=== PATIENT | female | born 1960 | race Caucasian/White ===

== ENCOUNTER 2022-01-09 08:17 | Outpatient (REF) | payer OTHER, SELFPAY ==
--- NOTE | ~2022-01-09 | MM_ITS ---
EXAMINATION: MM SCREENING DIGITAL BREAST TOMOSYNTHESIS, BILATERAL CLINICAL INFORMATION: Screening. Asymptomatic. The lifetime risk of breast cancer based on the Tyrer-Cuzick Model is 9%. COMPARISON: Mammography: 03/27/2019, 02/05/2018, 01/27/2017, 12/15/2015 TECHNIQUE: Digital breast tomosynthesis is performed in both the craniocaudal and mediolateral oblique views along with computer-aided detection (CAD). Synthesized 2D images are generated from the tomosynthesis. FINDINGS: There are scattered areas of fibroglandular density (ACR BI-RADS breast composition Category b). Left breast parenchymal pattern is similar to prior study. No developing density or interval architectural abnormality. Neither breast shows abnormal calcifications. The axilla and skin contours are unremarkable. Right breast has circumscribed oval nodule approximately 0.5 cm anterior 9:00 position, increased in size from prior study, possibly cyst or intramammary node. Patient will be recalled for targeted ultrasound. MM/MM tomosynthesis screening BI IMPRESSION: Right: -Circumscribed oval nodule approximately 0.5 cm anterior 9:00 position increased in size from prior exams, possibly a cyst or intramammary node. Left: -No mammographic evidence of malignancy. ASSESSMENT: BI-RADS 0: Incomplete - Need Additional Imaging Evaluation RECOMMENDATION: 1. Targeted ultrasound right breast. 2. Radiology department staff will contact the patient for additional imaging. This patient's information was entered into a reminder system with a target due date for their next mammogram.
== END 2022-01-09 08:18 | disposition home or self-care (01) ==
LOC: HO.MAMMO 08:17
PROVIDERS: PCP Internal Medicine; Visit Provider Internal Medicine
DX: Z12.31 Encounter for screening mammogram for malignant neoplasm of breast (principal)
CPT/HCPCS: 77063; 77067

== ENCOUNTER 2022-01-11 08:56 | Outpatient (REF) | payer OTHER, SELFPAY ==
--- NOTE | ~2022-01-11 | US_ITS ---
EXAMINATION: US DIAGNOSTIC ULTRASOUND BREAST, RIGHT CLINICAL INFORMATION: Recall from screening for small oval circumscribed nodule anterior 9:00 position increased in size from prior studies, possibly a cyst. COMPARISON: Mammography 01/09/2022, 03/27/2019, 02/05/2018. TECHNIQUE: Ultrasound right breast is targeted to the anterior outer aspect using grayscale imaging and color Doppler without and with harmonics. FINDINGS: There is a complicated cyst 9:30 o'clock position approximately 4 cm from nipple measuring 6 x 3 x 5 mm with subtle increased through-transmission of sound. No associated color flow. There is fine avascular internal septation and some vague avascular geographic peripheral echogenicity likely related to apocrine metaplasia. No solid mass or architectural abnormality or focal duct ectasia. Smaller simple cyst also noted in the targeted area. Results are discussed with the patient at time of visit. US/US breast RT limited IMPRESSION: -Subcentimeter benign-appearing complicated cyst anterior 9:30 position, likely corresponding to finding on mammography. ASSESSMENT: BI-RADS 3: Probably Benign RECOMMENDATION: Diagnostic right mammography and right breast ultrasound in 6 months. This patient's information was entered into a reminder system with a target due date for their next mammogram.
== END 2022-01-11 08:57 | disposition home or self-care (01) ==
LOC: HO.MAMMO 08:56
PROVIDERS: Visit Provider Internal Medicine
DX: N63.10 Unspecified lump in the right breast, unspecified quadrant (principal)
CPT/HCPCS: 76642

== ENCOUNTER 2022-07-18 13:18 | Outpatient (REF) | payer OTHER, SELFPAY ==
--- NOTE | ~2022-07-18 | MM_ITS ---
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 TC score 9%. COMPARISON: Mammography: 01/09/2022, 03/27/2019, ultrasound right breast 01/11/2022. TECHNIQUE: Digital breast tomosynthesis is performed in both the craniocaudal and mediolateral oblique views along with computer-aided detection (CAD). Synthesized 2D images are generated from the tomosynthesis. Ultrasound right breast is targeted to the anterior outer breast using grayscale imaging, color Doppler, or an without and with harmonics. FINDINGS: There are scattered areas of fibroglandular density (ACR BI-RADS breast composition Category b). The nodule for follow-up is not clearly visualized, possibly obscured by overlying fibroglandular tissue. There is no developing density or architectural abnormality. No abnormal calcifications. The axilla is unremarkable. Ultrasound demonstrates stable oval complicated avascular cyst under 1 cm with some geographic internal echoes suggesting apocrine metaplasia. There is increased through-transmission of sound at real-time imaging and no associated peripheral or internal color so. Overall dimensions are similar to previous. Results are provided to the patient at time of visit by the technologist. MM/MM tomosynthesis diagnostic RT IMPRESSION: -Probable benign mildly complicated cyst anterior outer right breast, stable. ASSESSMENT: BI-RADS 3: Probably Benign RECOMMENDATION: Diagnostic mammography and right breast ultrasound at time of annual bilateral exam, due in 6 months. This patient's information was entered into a reminder system with a target due date for their next mammogram.
== END 2022-07-18 13:19 | disposition home or self-care (01) ==
LOC: HO.MAMMO 13:18
PROVIDERS: Visit Provider Internal Medicine
DX: N63.10 Unspecified lump in the right breast, unspecified quadrant (principal)
CPT/HCPCS: 76642; 77061; 77065

== ENCOUNTER 2023-01-24 13:24 | Outpatient (REF) | payer OTHER, SELFPAY ==
--- NOTE | ~2023-01-24 | MM_ITS ---
EXAMINATION: MM DIAGNOSTIC DIGITAL BREAST TOMOSYNTHESIS, BILATERAL US BREAST LIMITED, RIGHT MAMMOGRAPHY: CLINICAL INFORMATION: Six-month follow-up right breast ultrasound for probably benign complicated cyst in the 10:00 axis, 4 cm from the nipple. Six-month follow-up mammography for 1 view asymmetry right breast upper outer quadrant anterior depth. The lifetime risk of breast cancer based on the Tyrer-Cuzick Model is 9%. COMPARISON: Mammography: 07/18/2022, 01/09/2022, and dating back to 2014. Ultrasound of the right breast dated 07/18/2022, 01/11/2022. TECHNIQUE: Digital breast tomosynthesis is performed in both the craniocaudal and mediolateral oblique views along with computer-aided detection (CAD). Synthesized 2D images are generated from the tomosynthesis. FINDINGS: There are scattered areas of fibroglandular density (ACR BI-RADS breast composition Category b). Mammography demonstrates no significant masses, abnormal calcifications, or regions of architectural distortion. The previously questioned one view asymmetry in the upper outer quadrant right breast, anterior depth, appears to be related to a tortuous vessel on today's examination. This finding is benign. Results are provided to the patient at time of visit by the technologist. ULTRASOUND: CLINICAL INFORMATION: Six-month follow-up right breast ultrasound for probably benign complicated cyst in the 10:00 axis, 4 cm from the nipple. COMPARISON: 07/18/22, 01/11/2022. TECHNIQUE: Targeted sonographic evaluation was performed using a high frequency linear transducer. Selected archived documentation. FINDINGS: RIGHT BREAST: There is a stable circumscribed hypoechoic complicated cyst versus small solid mass at the 10:00 axis, 4 cm from the nipple, posterior depth, measuring 4 x 4 x 5 mm. This is unchanged in morphology and demonstrates posterior acoustic enhancement. No internal color Doppler signal. This is likely a complicated cyst. It remains probably benign. Six-month interval follow-up recommended to ensure stability. MM/MM tomosynthesis diagnostic BI IMPRESSION: Mammography demonstrating no persistent abnormality or evidence of malignancy. Recommend resuming routine annual screening. Right breast ultrasound demonstrating a stable probably benign complicated cyst at the 10:00 axis, 4 cm from the nipple, as described. Recommend six-month follow-up targeted right breast ultrasound as a precaution. OVERALL ASSESSMENT: Mammography: BI-RADS 3 - Probably benign finding(s) - 6 month follow-up suggested Ultrasound: BI-RADS 3 - Probably benign finding(s) - 6 month follow-up suggested RECOMMENDATION: 6 Month F/U right breast targeted ultrasound. This patient's information was entered into a reminder system with a target due date for their next mammogram. a reminder system with a target due date for their next mammogram.
== END 2023-01-24 13:25 | disposition home or self-care (01) ==
LOC: HO.MAMMO 13:24
PROVIDERS: Visit Provider Internal Medicine
DX: R92.8 Other abnormal and inconclusive findings on diagnostic imaging of breast (principal); N60.01 Solitary cyst of right breast
CPT/HCPCS: 76642; 77062; 77066

== ENCOUNTER → 2023-01-24 13:30 | Outpatient (BNV) | payer OTHER, SELFPAY | PROVIDERS: Visit Provider Radiology Diagnostic Radiology | DX: Z12.31 Encounter for screening mammogram for malignant neoplasm of breast (principal) | CPT/HCPCS: 77062; 77066 ==

== ENCOUNTER 2023-07-24 15:16 | Outpatient (REF) | payer OTHER, SELFPAY ==
--- NOTE | ~2023-07-24 | US_ITS ---
EXAMINATION: US DIAGNOSTIC ULTRASOUND BREAST, RIGHT CLINICAL INFORMATION: Follow-up mildly complicated cyst right breast 10:00 axis, 4 cm from the nipple. (third follow-up for 1.5 years stability). COMPARISON: 01/24/2023, 07/18/2022, 01/11/2022. TECHNIQUE: Ultrasound of the right breast is performed with real-time velez scale imaging and color Doppler. Attention was given to the upper outer quadrant of the right breast in the region of the known complicated cyst. FINDINGS: There is a stable mildly complicated oval cyst in the right breast, 10:00 axis, 4 cm from the nipple, measuring an unchanged 6 x 3 x 5 mm. This is stable and unchanged when compared with 01/11/2022 exam. There is good through transmission, the finding is circumscribed, no internal color Doppler signal, and no surrounding parenchymal changes. A few low-level internal echoes remaining. Finding remains probably benign. 6 month interval follow-up targeted right breast ultrasound recommended to establish two-year stability and benignity, when the patient is due for bilateral screening. US/US breast RT limited mamm only IMPRESSION: No significant interval change. Probably benign complicated cyst right breast 10:00 axis, 4 cm from the nipple. Six-month interval follow-up targeted right breast ultrasound recommended when the patient is due for bilateral screening. ASSESSMENT: BI-RADS 3 - Probably benign finding(s) - 6 month follow-up suggested RECOMMENDATION: 6 Month F/U This patient's information was entered into a reminder system with a target due date for their next mammogram.
== END 2023-07-24 15:17 | disposition home or self-care (01) ==
LOC: HO.MAMMO 15:16
PROVIDERS: PCP Internal Medicine; Visit Provider Internal Medicine
DX: R92.8 Other abnormal and inconclusive findings on diagnostic imaging of breast (principal)
CPT/HCPCS: 76642

== ENCOUNTER → 2023-07-24 15:30 | Outpatient (BNV) | payer OTHER, SELFPAY | PROVIDERS: PCP Internal Medicine; Visit Provider Radiology Diagnostic Radiology | DX: N63.11 Unspecified lump in the right breast, upper outer quadrant (principal) | CPT/HCPCS: 76642 ==

== ENCOUNTER → 2024-02-02 13:00 | Outpatient (BNV) | payer OTHER, SELFPAY | PROVIDERS: PCP Internal Medicine; Visit Provider Radiology Diagnostic Radiology | DX: N63.11 Unspecified lump in the right breast, upper outer quadrant (principal); N63.24 Unspecified lump in the left breast, lower inner quadrant | CPT/HCPCS: 76642; 77062; 77066 ==

== ENCOUNTER 2024-02-02 13:01 | Outpatient (REF) | payer OTHER, SELFPAY ==
--- NOTE | ~2024-02-02 | MM_ITS ---
EXAMINATION: MM DIAGNOSTIC DIGITAL BREAST TOMOSYNTHESIS, BILATERAL US BREAST LIMITED, BILATERAL MAMMOGRAPHY: CLINICAL INFORMATION: 63-year-old female complaining of palpable abnormality left breast 7:00 axis, posterior one third, possibly a rib. Also, six-month follow-up for complicated cyst right breast 10:00 axis, 4 cm from the nipple. Patient also due for yearly. COMPARISON: Mammography: 01/24/2023, 07/18/2022, 01/09/2022, and dating back to 2014. Ultrasound of the right breast dated 01/24/2023, 07/18/2022, 01/11/2022. TECHNIQUE: Digital breast tomosynthesis is performed in both the craniocaudal and mediolateral oblique views along with computer-aided detection (CAD). Synthesized 2D images are generated from the tomosynthesis. In addition to standard views, a full-field 3-D left mediolateral view was obtained, as well as 3-D spot compression left CC and MLO views of the region of palpable concern left breast. FINDINGS: There are scattered areas of fibroglandular density (ACR BI-RADS breast composition Category b). Within the RIGHT breast, there is a stable oval small mass at the 10:00 axis, 4 cm from the nipple, posterior depth, measuring 5 mm approximately. In addition, there are 2 additional small oval circumscribed masses in the upper outer right breast, and periareolar region. Within the LEFT breast, there are no abnormalities in the region of palpable concern at 7:00 posterior one third. No correlate to the focus of palpable concern is present on mammography. In the left breast middle one third at 4:00, there is a 6 mm oval circumscribed mass, for which ultrasound will be performed. Otherwise, no suspicious masses, suspicious grouped calcifications, or areas of architectural distortion in either breast. The overall parenchymal pattern is stable from prior examinations. There is no skin or axillary abnormality. ULTRASOUND: CLINICAL INFORMATION: Evaluate RIGHT breast 10:00 axis complicated cyst measuring 7 mm. Evaluate focus of palpable concern LEFT breast 7:00 axis posterior one third depth. Evaluate LEFT breast 4:00, 6 x 7 x 5 mm oval circumscribed mass, middle one third. COMPARISON: 01/24/2023, 07/18/2022, 01/11/2022. TECHNIQUE: Targeted sonographic evaluation bilateral breasts was performed using a high frequency linear transducer. RIGHT breast was scanned in the upper outer quadrant to include the 10:00 axis. LEFT breast was scanned in the area of palpable concern 7:00 axis posterior one third, as well as the 4:00 axis in the region of oval circumscribed 6 mm mass seen on today's mammography. Selected archived documentation. FINDINGS: RIGHT BREAST: -There is a stable circumscribed hypoechoic complicated cyst versus small solid mass at the 10:00 axis, 4 cm from the nipple, posterior depth, measuring 5 x 3 x 4 mm. This is unchanged in size, morphology and demonstrates posterior acoustic enhancement. No internal color Doppler signal. This may be a small benign mass or complicated cyst, but has been stable over 2 years and is benign. No further follow-up recommended. There are at least 2 other small circumscribed cysts consistent with fibrocystic changes in the upper aspect of the right breast. LEFT BREAST: -In the 7:00 axis, posterior one third, no ultrasound correlate to the area of palpable concern was evident. The patient appeared to be feeling her underlying rib in this region. No suspicious findings. -In the 4:00 axis, there is a 6 x 3 x 6 mm cluster of cysts with good through transmission and no internal color Doppler flow. This is benign. No further follow-up recommended. Benign duct ectasia is present in both breasts. No suspicious masses, areas of abnormal shadowing, or architectural distortion noted in either breast. MM/MM tomosynthesis diagnostic BI IMPRESSION: -There are no findings suspicious for malignancy in either breast. -There are benign findings bilaterally, including the unchanged complicated cyst versus solid mass right breast 10:00 axis. This has been unchanged over 2 years and is benign. No further follow-up recommended. -Palpable abnormality in the left breast 7:00 axis appears to be related to the patient's rib, a normal anatomic structure. No suspicious findings. -Benign cluster of cysts in the 4:00 axis left breast. No further follow-up recommended. -Recommend this patient return to routine annual screening in one year. OVERALL ASSESSMENT: Mammography: BI-RADS 2 - Benign Findings Ultrasound: BI-RADS 2 - Benign Findings RECOMMENDATION: 1 year F/U Results were discussed with the patient at time of visit. This patient's information was entered into a reminder system with a target due date for their next mammogram.
== END 2024-02-02 13:02 | disposition home or self-care (01) ==
LOC: HO.MAMMO 13:01
PROVIDERS: PCP Internal Medicine; Visit Provider Advanced Practice Midwife
DX: R92.8 Other abnormal and inconclusive findings on diagnostic imaging of breast (principal); N60.01 Solitary cyst of right breast
CPT/HCPCS: 76642; 77062; 77066